=== PATIENT | male | born 1970 | race Caucasian/White ===

== ENCOUNTER 2018-06-11 18:32 | Emergency (ER) | payer BC, MEDICAID ==
[~2018-06-11] VITALS: Ht 172.7 cm; Wt 119.8 kg
[2018-06-11 19:04] LABS: BASOPHILS # (AUTO) 0.02 x10^3/uL (0-0.1); BASOPHILS % (AUTO) 0 % (0-1); EOSINOPHILS # (AUTO) 0.13 x10^3/uL (0-0.4); EOSINOPHILS % (AUTO) 1 % (1-7); LYMPHOCYTES # (AUTO) 1.78 x10^3/uL (1-3.4); LYMPHOCYTES % (AUTO) 13 % (22-44); MD NO; MEAN CORPUSCULAR HEMOGLOBIN 29.5 pg (27.5-34.5); MEAN CORPUSCULAR HGB CONC 33.8 g/dL (33.2-36.2); MEAN CORPUSCULAR VOLUME 87.1 fL (81-97); MEAN PLATELET VOLUME 8.1 fL (7.4-10.4); MONOCYTES # (AUTO) 0.74 x10^3/uL (0.2-0.8); MONOCYTES % (AUTO) 5 % (2-9); NEUTROPHILS # (AUTO) 10.91 x10^3/uL (1.8-6.8); NEUTROPHILS % (AUTO) 80 % (42-75); PLATELET COUNT 312 x10^3/uL (130-400)
[2018-06-11 19:16] LABS: ALANINE AMINOTRANSFERASE 58 U/L (12-78); ALBUMIN 3.5 g/dL (3.4-5.0); ANION GAP 9 mmol/L (5-15); CALCIUM 8.4 mg/dL (8.5-10.1); CHLORIDE 106 mmol/L (98-107); CREATININE 1.01 mg/dL (0.7-1.3)
[2018-06-11 19:21] LABS: ALKALINE PHOSPHATASE 149 U/L (45-117); BILIRUBIN,TOTAL 0.8 mg/dL (0.2-1.0); TROPONIN I < 0.015 ng/mL (0.000-0.045)
--- NOTE | 2018-06-11 20:45 | NUR ---
EDGARX1
--- NOTE | 2018-06-11 21:15 | NUR ---
NILX2
--- NOTE | 2018-06-11 21:57 | NUR ---
NILX3
--- NOTE | 2018-06-11 22:12 | NUR ---
PT NOW IN LOBBY. PT TO ROOM FROM LOBBY
--- NOTE | 2018-06-11 22:19 | NUR ---
JAYESH RN: US CALLED TO MAKE AWARE THAT PT HAS BEEN ROOMED
--- NOTE | 2018-06-11 22:33 | NUR ---
PT TO ULTRASOUND NOW
[2018-06-11] MEDS ORDERED: POTASSIUM CHLORIDE 20 MEQ TAB.ER.PRT ONE (23:18)
[2018-06-11 23:20] VITALS: BP 134/73
[2018-06-11] MEDS ORDERED: CEPHALEXIN 500 MG CAPSULE ONE (23:25)
[2018-06-11] MEDS ORDERED: SULFAMETH./TRIMETHOPRIM DS 800MG/160MG TABLET ONE (23:25)
[2018-06-11] MEDS ORDERED: SULFAMETH./TRIMETHOPRIM DS 800MG/160MG TABLET PO ONE (23:30)
[2018-06-11] MEDS ORDERED: POTASSIUM CHLORIDE 20 MEQ TAB.ER.PRT PO ONE (23:30)
[2018-06-11] MEDS ORDERED: CEPHALEXIN 500 MG CAPSULE PO ONE (23:30)
--- NOTE | 2018-06-11 23:36 | NUR ---
TASK RN: DC EDUCATION PROVIDED, PT DEMONSTRATES UNDERSTANDING. PT AMBULATED STEADILY TO DC WITH RN AND FRIEND.
== END 2018-06-11 23:37 | disposition home or self-care (01) ==
LOC: ED 23:30
DX: L03.115 Cellulitis of right lower limb (principal); L03.116 Cellulitis of left lower limb; I87.2 Venous insufficiency (chronic) (peripheral); L89.529 Pressure ulcer of left ankle, unspecified stage; L89.519 Pressure ulcer of right ankle, unspecified stage; F17.200 Nicotine dependence, unspecified, uncomplicated
CPT/HCPCS: 36415; 71045; 80053; 83880; 84484; 85025; 93005; 93970; 99284